=== PATIENT | male | born 1995 | race Caucasian/White ===

== ENCOUNTER 2018-05-21 19:55 | Emergency (ER) | payer SELFPAY ==
[~2018-05-21] VITALS: Ht 185.4 cm; Wt 86.2 kg
[2018-05-21 20:01] VITALS: BP 156/100
--- NOTE | 2018-05-21 20:20 | NUR ---
PATIENT PRESENTS TO ED WITH C/O L SIDED WEAKNESS/NUMBNESS X1.5 HR. NO FACIAL DROOP NOTED, NO ARM DRIFT, SPEECH CLEAR.PT DENIES N/V/D; SKIN IS PINK/WARM/DRY; AAOX4 WITH EVEN AND STEADY GAIT; LUNGS CLEAR BL; HR EVEN AND REGULAR; PATIENT STATES PAIN OF 8/10 AT THIS TIME; PATIENT POSITIONED FOR COMFORT; HOB ELEVATED; BEDRAILS UP X2; BED DOWN. ER MD MADE AWARE OF PT STATUS. REPORTS ETOH, COCAINE AND MARIJUANA USE TONIGHT. PT STATES HE WANTS TO GET HELP FOR HIS SUBSTANCE ABUSE AND IS VERY TEARFUL AND ANXIOUS.
--- NOTE | 2018-05-21 20:23 | NUR ---
PT TAKEN TO BED 7
--- NOTE | 2018-05-21 21:23 | NUR ---
X-Ray at bedside.
[2018-05-21 21:41] LABS: BASOPHILS % (AUTO) 0.3 % (0.0-2.0); EOSINOPHILS % (AUTO) 0.1 % (0.0-4.0); HEMATOCRIT 48.1 % (36-52); LYMPHOCYTES # (AUTO) 1.9 K/uL (2.0-11.5); LYMPHOCYTES % (AUTO) 20.4 % (20.5-51.1); MEAN CORPUSCULAR HEMOGLOBIN 31 pg (27-31); MEAN CORPUSCULAR HGB CONC 33 g/dL (33-37); MEAN CORPUSCULAR VOLUME 92.8 fL (80-94); MONOCYTES # (AUTO) 0.5 K/uL (0.8-1.0); MONOCYTES % (AUTO) 5.4 % (1.7-9.3); NEUTROPHILS # (AUTO) 6.8 K/uL (1.8-7.7); NEUTROPHILS % (AUTO) 73.8 % (42.2-75.2); PLATELET COUNT (AUTO) 261 K/uL (140-450); RED BLOOD CELL COUNT(AUTO) 5.18 MIL/uL (4.20-6.10); RED CELL DISTRIBUTION WIDTH 12.4 % (11.6-13.7); WHITE BLOOD COUNT (AUTO) 9.2 K/uL (4.8-10.8)
[2018-05-21 22:06] LABS: ALBUMIN 4.3 g/dL (3.4-5.0); ANION GAP 10.1 (8-16); CARBON DIOXIDE 26.4 mmol/L (21-32); POTASSIUM 3.5 mmol/L (3.5-5.1); TOTAL BILIRUBIN 0.6 mg/dL (0.0-1.0)
[2018-05-21 22:06] LABS: BARBITURATE, URINE NEG. ng/ml (NEG <=200); BENZODIAZEPINE, URINE NEG. ng/mL (NEG <=200); CANNABINOID, URINE POS. ng/mL (NEG <=50); COCAINE, URINE POS. ng/mL (NEG <=300); OPIATE, URINE NEG. ng/mL (NEG <=2000); PHENCYCLIDINE SCREEN,URINE NEG. ng/mL (NEG <=25)
[2018-05-21 23:05] VITALS: BP 134/83
--- NOTE | 2018-05-21 23:05 | NUR ---
Patient discharged with v/s stable. Written and verbal after care instructions given and explained. Patient verbalized understanding. Ambulatory with steady gait. All questions addressed prior to discharge. Advised to follow up with PMD.
== END 2018-05-21 23:05 | disposition home or self-care (01) ==
LOC: MED 19:55
DX: F14.90 Cocaine use, unspecified, uncomplicated (principal); R07.89 Other chest pain; R53.1 Weakness; Z88.0 Allergy status to penicillin
CPT/HCPCS: 36415; 71045; 80053; 80305; 81002; 83880; 84484; 85025; 85610; 85730; 93005; 99284; Q0092

== ENCOUNTER 2019-06-04 01:21 | Emergency (ER) | payer SELFPAY ==
[~2019-06-04] VITALS: Ht 185.4 cm; Wt 90.7 kg
[2019-06-04 01:25] VITALS: BP 178/94
--- NOTE | 2019-06-04 01:25 | NUR ---
PT AMBULATED TO BED #9
--- NOTE | 2019-06-04 01:31 | NUR ---
EKG PERFORMED AT BEDSIDE
[2019-06-04] MEDS ORDERED: NACL 0.9% 1,000 ML IV ONE (01:40)
[2019-06-04] MEDS ORDERED: LORazepam 2 MG/ML VIAL IVP ONE (01:40)
--- NOTE | 2019-06-04 01:40 | NUR ---
LAB AT BEDSIDE
--- NOTE | 2019-06-04 01:45 | NUR ---
PT BIB SELF C/O THROBING NON-RADIATING LT SIDED CP AT 10/22. PT IS DIAPHORETIC. DENIES N/V OR SOB. PT REPORTS DOING "A BUNCH OF COCAINE." CATALOG SPECIALIST SHOWS SINUS TACH, S1 AND S2 HEART SOUNDS ASCULTATED, CAP REFIL < 3 SEC, RR EVEN AND NON-LABORED. DR VÁSQUEZ AWARE OF PT CONDITION. PM:DENIES Addendum: 06/04/19 at 0305 by ISSA PT [id number], COOPERATIVE, SPEAKING IN FULL SENTENCES
[2019-06-04 02:03] LABS: ALBUMIN 4.3 g/dL (3.4-5.0); ANION GAP 16.1 (8-16); CARBON DIOXIDE 23.4 mmol/L (21-32); POTASSIUM 3.5 mmol/L (3.5-5.1); TOTAL BILIRUBIN 0.4 mg/dL (0.0-1.0)
--- NOTE | 2019-06-04 02:13 | NUR ---
X-RAY AT BEDSIDE
--- NOTE | 2019-06-04 02:49 | NUR ---
Patient discharged with v/s stable. Written and verbal after care instructions given and explained. Patient verbalized understanding. Ambulatory with steady gait. All questions addressed prior to discharge. Advised to follow up with PMD. PT GIVEN LIST FOR REHAB FACILITIES
[2019-06-04 02:50] VITALS: BP 162/94
--- NOTE | 2019-06-05 12:01 | NUR ---
Late entry. COnfirmed with RN that 0.9 NS IV completed at 0245.
== END 2019-06-04 02:49 | disposition home or self-care (01) ==
LOC: MED 01:21
DX: F19.10 Other psychoactive substance abuse, uncomplicated (principal); F14.10 Cocaine abuse, uncomplicated; Z88.0 Allergy status to penicillin
CPT/HCPCS: 36415; 71045; 80053; 84484; 93005; 96374; 99285; J2060; J7030; Q0092